=== PATIENT | male | born 1985 | race Caucasian/White ===

== ENCOUNTER 2019-12-19 19:37 | Outpatient (REF) | payer SELFPAY ==
[2019-12-26 12:43] LABS: IgA 117 mg/dL (85-499); Tissue Transglutaminase IgA <1.2 U/mL (<4.0)
== END 2019-12-19 19:57 ==
LOC: NCHCN 19:37
PROVIDERS: PCP Registered Nurse; Visit Provider Registered Nurse
DX: R10.9 Unspecified abdominal pain (principal); R14.0 Abdominal distension (gaseous)
CPT/HCPCS: 82784; 83516

== ENCOUNTER 2020-02-06 20:14 | Outpatient (REF) | payer SELFPAY ==
[2020-02-10 12:44] LABS: Lyme Ab w Rflx to Lyme Confirm Negative (Negative)
== END 2020-02-06 20:34 ==
LOC: NCHCN 20:14
PROVIDERS: PCP Registered Nurse; Visit Provider Registered Nurse
DX: R10.9 Unspecified abdominal pain (principal); R53.1 Weakness
CPT/HCPCS: 86618

== ENCOUNTER 2020-04-27 11:25 | Outpatient (REF) | payer SELFPAY ==
[2020-04-27 21:29] LABS: C-Reactive Protein 0.08 mg/dL (0.0-0.3); Creatine Kinase 209 U/L (39-308); TSH 2.22 uIU/mL (0.36-3.74)
[2020-04-29 15:48] LABS: ANA Interpretation Negative (Negative)
[2020-05-05 10:13] LABS: Striational(Striated Muscle) A Negative titer (<1:120)
== END 2020-04-27 11:45 ==
LOC: NCHCN 11:25
PROVIDERS: PCP Registered Nurse; Visit Provider Registered Nurse
DX: R53.83 Other fatigue (principal); R53.1 Weakness; M19.90 Unspecified osteoarthritis, unspecified site
CPT/HCPCS: 82550; 83519; 83520; 84443; 86038; 86140

== ENCOUNTER 2021-05-06 15:40 | Outpatient (REF) | payer SELFPAY ==
[2021-05-06 21:34] LABS: Abs Immature Grans 0.02 10^3/uL (0.0-0.06); Absolute Basophil Count 0.08 10^3/uL (0.0-0.2); Absolute Eosinophil Count 0.29 10^3/uL (0.0-0.7); Absolute Lymphocyte Count 2.79 10^3/uL (1.2-3.4); Absolute Monocyte Count 0.51 10^3/uL (0.1-0.8); Absolute Neutrophil Count 4.16 10^3/uL (1.2-6.7); Eosinophils % 3.7; HCT 41.7 % (40.0-50.0); HGB 14.9 g/dL (13.5-17.5); Immature Grans % 0.3; Lymphocytes % 35.5; MCH 29.9 pg (27.0-33.0); MCHC 35.7 % (32.0-36.0); MCV 83.7 fL (80-95); MPV 11.1 fL (8.0-11.0); Monocytes % 6.5; Nucleated RBC 0 %; Platelet Count 267 10^3/uL (130-400); RBC 4.98 10^6/uL (4.36-5.78); RDW 12.5 % (11.8-14.1); RDW-SD 37.7 fL; WBC 7.85 10^3/uL (4.4-10.8)
[2021-05-06 21:56] LABS: ALT 26 U/L (16-63); AST 13 U/L (15-37); Albumin 4.4 g/dL (3.4-5.0); Alkaline Phosphatase 67 U/L (46-116); Anion Gap 8.8 mmol/L (3-11); BUN 20 mg/dL (7-18); Bilirubin, Total 0.5 mg/dL (0.2-1.0); C-Reactive Protein 0.07 mg/dL (0.0-0.3); CO2 28.2 mmol/L (21.0-32.0); CREATININE 1.1 mg/dL (0.70-1.30); Calcium 9.3 mg/dL (8.5-10.1); Chloride 105 mmol/L (98-107); Potassium 4.6 mmol/L (3.5-5.1); Sodium 142 mmol/L (136-145); Total Protein 7.4 g/dL (6.4-8.2)
[2021-05-06 22:08] LABS: Glucose 75 mg/dL (74-106)
== END 2021-05-06 15:41 | disposition home or self-care (01) ==
LOC: NCHCN 15:40
PROVIDERS: PCP Registered Nurse; Visit Provider Nurse Practitioner Family
DX: M46.92 Unspecified inflammatory spondylopathy, cervical region (principal)
CPT/HCPCS: 80053; 85025; 86140

== ENCOUNTER 2022-11-11 20:10 | Outpatient (REF) | payer SELFPAY ==
[2022-11-11 21:41] LABS: HCT 42.5 % (40.0-50.0); HGB 15.1 g/dL (13.5-17.5); MCH 30.1 pg (27.0-33.0); MCHC 35.5 % (32.0-36.0); MCV 85 fL (80-95); MPV 10.3 fL (8.0-11.0); Platelet Count 278 10^3/uL (130-400); RBC 5.02 10^6/uL (4.36-5.78); RDW 12.5 % (11.8-14.1); RDW-SD 38.5 fL; WBC 10.36 10^3/uL (4.4-10.8)
[2022-11-11 22:07] LABS: Anion Gap 4.3 mmol/L (3-11); BUN 18 mg/dL (7-18); CO2 29.7 mmol/L (21.0-32.0); CREATININE 1.1 mg/dL (0.70-1.30); Calcium 9.5 mg/dL (8.5-10.1); Chloride 103 mmol/L (98-107); Estimated GFR 88.12 (mL/min/1.73m2); Glucose 94 mg/dL (74-106); Potassium 4.5 mmol/L (3.5-5.1); Sodium 137 mmol/L (136-145); TSH (W/Ref FT4) 1.88 uIU/mL (0.36-3.74)
== END 2022-11-11 20:11 | disposition home or self-care (01) ==
LOC: NCHCN 20:10
PROVIDERS: PCP Registered Nurse; Visit Provider Family Medicine
DX: R53.83 Other fatigue (principal); R10.9 Unspecified abdominal pain; K58.9 Irritable bowel syndrome, unspecified
CPT/HCPCS: 80048; 85027; 84443